=== PATIENT | female | born 1945 ===

== ENCOUNTER 2021-07-04 08:23 | Day surgery (SDC) | payer OTHER ==
[~2021-07-04] VITALS: Ht 160 cm; Wt 65.8 kg
[2021-07-04] MEDS ORDERED: fentaNYL citrate 0.05 MG/ML VIAL ONE (10:16)
[2021-07-04] MEDS ORDERED: MIDAZOLAM 5 MG/5 ML VIAL ONE (10:17)
[2021-07-04] MEDS ORDERED: MIDAZOLAM 2 MG/2 ML VIAL IVP ONE (14:10)
[2021-07-04] MEDS ORDERED: fentaNYL citrate 0.05 MG/ML VIAL IVP ONE (14:10)
== END 2021-07-04 11:30 | disposition home or self-care (01) ==
LOC: MDS 08:23 → MMU 08:25 → MDS 11:30
PROVIDERS: ATTEND Internal Medicine Gastroenterology
DX: R63.0 Anorexia (principal); E11.9 Type 2 diabetes mellitus without complications; E78.5 Hyperlipidemia, unspecified; Z79.84 Long term (current) use of oral hypoglycemic drugs; Z79.899 Other long term (current) drug therapy
CPT/HCPCS: 43235; J2250; J3010